=== PATIENT | female | born 1995 | race American Indian/Alaskan Native ===

== ENCOUNTER 2018-08-30 15:55 | Emergency (ER) | payer OTHER ==
--- NOTE | 2018-08-30 16:04 | Emergency Department Report ---
ED ENT HPI - General Chief complaint: Dental/Oral Stated complaint: RT SIDE TOOTH PAIN Time Seen by Provider: 08/30/18 16:04 Source: patient Mode of arrival: Ambulatory Limitations: No Limitations - History of Present Illness Initial comments: PT IS 23 YO WITH LOWER RIGHT MOLAR DENTAL PAIN. SHE IS AND HER OB SENT HER HERE. SHE HAS A DMD WORKUP BUT THE PAIN IS UNBEARABLE. AMBULATORY AFEBRILE TAKING PO complaint: tooth pain Consistency: constant Improves with: none Worsens with: none Context- Dental: history of dental caries - Related Data Previous Rx's Medication Instructions Recorded Last Taken Type Amoxicillin 500 mg PO BID #20 capsule 08/30/18 Unknown Rx HYDROcodone/APAP 5-325 [[place] 1 each PO Q8H PRN #5 tablet 08/30/18 Unknown Rx 5-325 mg TAB] Allergies Allergy/AdvReac Type Severity Reaction Status Date / Time No Known Allergies Allergy Verified 08/30/18 15:56 ED Dental HPI - General Chief complaint: Dental/Oral Stated complaint: RT SIDE TOOTH PAIN Time Seen by Provider: 08/30/18 16:04 Source: patient Mode of arrival: Ambulatory Limitations: No Limitations - Related Data Previous Rx's Medication Instructions Recorded Last Taken Type Amoxicillin 500 mg PO BID #20 capsule 08/30/18 Unknown Rx HYDROcodone/APAP 5-325 [[place] 1 each PO Q8H PRN #5 tablet 08/30/18 Unknown Rx 5-325 mg TAB] Allergies Allergy/AdvReac Type Severity Reaction Status Date / Time No Known Allergies Allergy Verified 08/30/18 15:56 ED Review of Systems ROS: Stated complaint: RT SIDE TOOTH PAIN Other details as noted in HPI Comment: All other systems reviewed and negative Constitutional: denies: chills Eyes: denies: as per HPI ENT: as per HPI, dental pain Respiratory: denies: cough Endocrine: denies: flushing Gastrointestinal: denies: abdominal pain, nausea, vomiting, diarrhea, constipation, hematemesis, melena Genitourinary: as per HPI. denies: urgency, dysuria, frequency, hematuria, discharge, abnormal menses Musculoskeletal: denies: back pain Neurological: denies: headache Psychiatric: denies: anxiety ED Past Medical Hx - Medications Home Medications: Home Medications Medication Instructions Recorded Confirmed Last Taken Type Amoxicillin 500 mg PO BID #20 capsule 08/30/18 Unknown Rx HYDROcodone/APAP 5-325 [[place] 1 each PO Q8H PRN #5 tablet 08/30/18 Unknown Rx 5-325 mg TAB] ED Physical Exam - General Limitations: No Limitations General appearance: alert - Head Head exam: Present: atraumatic - Eye Eye exam: Present: normal appearance Pupils: Present: normal accommodation - ENT ENT exam: Present: normal exam - Expanded ENT Exam Expanded Mouth exam: Absent: drooling, trismus, muffled voice, tongue normal, tongue elevation Teeth exam: Present: dental caries. Absent: normal inspection 1 - Other (CARIES) Throat exam: Positive: normal inspection. Negative: tonsillar erythema, tonsillomegaly, tonsillar exudate, R peritonsillar mass, L peritonsillar mass - Neck Neck exam: Present: normal inspection, full ROM. Absent: tenderness - Respiratory Respiratory exam: Present: normal lung sounds bilaterally - Cardiovascular Cardiovascular Exam: Present: regular rate (100 ON EXAM) - GI/Abdominal GI/Abdominal exam: Present: soft, other (GRAVID) - Rectal Rectal exam: Present: deferred - Extremities Exam Extremities exam: Present: normal inspection - Back Exam Back exam: Present: normal inspection - Neurological Exam Neurological exam: Present: alert, oriented X3, CN II-XII intact, normal gait - Psychiatric Psychiatric exam: Present: normal affect, normal mood - Skin Skin exam: Present: warm, dry, intact ED Course Vital Signs 08/30/18 16:05 Temperature 98.8 F Pulse Rate 110 H Respiratory 16 Rate Blood Pressure 117/54 [Left] O2 Sat by Pulse 100 Oximetry ED Medical Decision Making - Medical Decision Making DENTAL CARIES CONTROLLING SECRETIONS NO ABSCESS Critical care attestation.: If time is entered above; I have spent that time in minutes in the direct care of this critically ill patient, excluding procedure time. ED Disposition Clinical Impression: Pain, dental Disposition: DC-01 TO HOME OR SELFCARE Is pt being admited?: No Does the pt Need Aspirin: No Condition: Stable Instructions: Dental Caries (ED) Additional Instructions: DAILY VITAMIN PROPER DIET TAKE MED ORDERED TODAY FOLLOW UP DMD BETSEY Prescriptions: Amoxicillin 500 mg PO BID #20 capsule HYDROcodone/APAP 5-325 [[place] 5-325 mg TAB] 1 each PO Q8H PRN #5 tablet PRN Reason: Pain Referrals: [facility] [Outside] - 3-5 Days Time of Disposition: 16:06
== END 2018-08-30 16:45 | disposition home or self-care (01) ==
LOC: ED 15:55
CPT/HCPCS: 99282

== ENCOUNTER 2018-09-12 17:24 | Emergency (ER) | payer OTHER ==
--- NOTE | 2018-09-12 21:19 | Emergency Department Report ---
ED ENT HPI - General Chief complaint: Dental/Oral Stated complaint: TOOTHACHE Time Seen by Provider: 09/12/18 20:57 Source: patient Mode of arrival: Ambulatory Limitations: No Limitations - History of Present Illness MD complaint: tooth pain -: Gradual, Sudden, month(s) Severity: mild Quality: other (throbbing pain) Consistency: constant Improves with: none Worsens with: none Context- Dental: history of dental caries, poor dental care Associated Symptoms: toothache - Related Data Previous Rx's Medication Instructions Recorded Last Taken Type Amoxicillin 500 mg PO BID #20 capsule 08/30/18 Unknown Rx HYDROcodone/APAP 5-325 [[place] 1 each PO Q8H PRN #5 tablet 08/30/18 Unknown Rx 5-325 mg TAB] Acetaminophen/Codeine [Tylenol 1 tab PO Q6H PRN #7 tab 09/12/18 Unknown Rx /Codeine # 3 tab] Chlorhexidine Mouthwash [Peridex] 15 ml MM BID #1 bottle 09/12/18 Unknown Rx Lidocaine Viscous 2% 5 ml MM Q4-6H #120 udc 09/12/18 Unknown Rx Allergies Allergy/AdvReac Type Severity Reaction Status Date / Time No Known Allergies Allergy Verified 09/12/18 19:15 ED Dental HPI - General Chief complaint: Dental/Oral Stated complaint: TOOTHACHE Time Seen by Provider: 09/12/18 20:57 Source: patient Mode of arrival: Ambulatory Limitations: No Limitations - Related Data Previous Rx's Medication Instructions Recorded Last Taken Type Amoxicillin 500 mg PO BID #20 capsule 08/30/18 Unknown Rx HYDROcodone/APAP 5-325 [[place] 1 each PO Q8H PRN #5 tablet 08/30/18 Unknown Rx 5-325 mg TAB] Acetaminophen/Codeine [Tylenol 1 tab PO Q6H PRN #7 tab 09/12/18 Unknown Rx /Codeine # 3 tab] Chlorhexidine Mouthwash [Peridex] 15 ml MM BID #1 bottle 09/12/18 Unknown Rx Lidocaine Viscous 2% 5 ml MM Q4-6H #120 udc 09/12/18 Unknown Rx Allergies Allergy/AdvReac Type Severity Reaction Status Date / Time No Known Allergies Allergy Verified 09/12/18 19:15 ED Review of Systems ROS: Stated complaint: TOOTHACHE Other details as noted in HPI Constitutional: denies: chills, fever Eyes: denies: eye pain, eye discharge, vision change ENT: denies: ear pain, throat pain Respiratory: denies: cough, shortness of breath, wheezing Cardiovascular: denies: chest pain, palpitations Endocrine: no symptoms reported Gastrointestinal: denies: abdominal pain, nausea, diarrhea Genitourinary: denies: urgency, dysuria, discharge Musculoskeletal: denies: back pain, joint swelling, arthralgia Skin: denies: rash, lesions Neurological: denies: headache, weakness, paresthesias Psychiatric: denies: anxiety, depression Hematological/Lymphatic: denies: easy bleeding, easy bruising ED Past Medical Hx - Social History Smoking Status: Never Smoker Substance Use Type: None - Medications Home Medications: Home Medications Medication Instructions Recorded Confirmed Last Taken Type Amoxicillin 500 mg PO BID #20 capsule 08/30/18 Unknown Rx HYDROcodone/APAP 5-325 [[place] 1 each PO Q8H PRN #5 tablet 08/30/18 Unknown Rx 5-325 mg TAB] Acetaminophen/Codeine [Tylenol 1 tab PO Q6H PRN #7 tab 09/12/18 Unknown Rx /Codeine # 3 tab] Chlorhexidine Mouthwash [Peridex] 15 ml MM BID #1 bottle 09/12/18 Unknown Rx Lidocaine Viscous 2% 5 ml MM Q4-6H #120 udc 09/12/18 Unknown Rx ED Physical Exam - General Limitations: No Limitations General appearance: alert, in no apparent distress - Head Head exam: Present: atraumatic, normocephalic - Eye Eye exam: Present: normal appearance, PERRL, EOMI Pupils: Present: normal accommodation - ENT ENT exam: Present: normal exam, normal orophraynx, mucous membranes moist, other (dental caries and erythema to gingiva region) - Neck Neck exam: Present: normal inspection - Respiratory Respiratory exam: Present: normal lung sounds bilaterally. Absent: respiratory distress - Cardiovascular Cardiovascular Exam: Present: regular rate, normal rhythm. Absent: systolic murmur, diastolic murmur, rubs, gallop - GI/Abdominal GI/Abdominal exam: Present: soft, normal bowel sounds - Extremities Exam Extremities exam: Present: normal inspection - Back Exam Back exam: Present: normal inspection - Neurological Exam Neurological exam: Present: alert, oriented X3 - Psychiatric Psychiatric exam: Present: normal affect, normal mood - Skin Skin exam: Present: warm, dry, intact, normal color. Absent: rash ED Course Vital Signs 09/12/18 21:36 Temperature 98.3 F Pulse Rate 94 H Respiratory 16 Rate Blood Pressure 103/51 [Left] O2 Sat by Pulse 98 Oximetry Critical care attestation.: If time is entered above; I have spent that time in minutes in the direct care of this critically ill patient, excluding procedure time. ED Disposition Clinical Impression: Pain, dental, Dental caries Disposition: TO HOME OR SELFCARE Is pt being admited?: No Does the pt Need Aspirin: No Condition: Stable Instructions: Dental Caries (ED), Toothache (ED) Prescriptions: Lidocaine Viscous 2% 5 ml MM Q4-6H #120 udc Chlorhexidine Mouthwash [Peridex] 15 ml MM BID #1 bottle Acetaminophen/Codeine [Tylenol /Codeine # 3 tab] 1 tab PO Q6H PRN #7 tab PRN Reason: Pain, Moderate (4-6) Referrals: PRIMARY CARE, [Primary Care Provider] - 3-5 Days
--- NOTE | 2018-09-12 21:32 | Emergency Department Report ---
ED ENT HPI - General Chief complaint: Dental/Oral Stated complaint: TOOTHACHE Time Seen by Provider: 09/12/18 20:57 Source: patient Mode of arrival: Ambulatory Limitations: No Limitations - History of Present Illness MD complaint: tooth pain -: week(s) (recurrent dental pain for the last few weeks has appointment with the dentist next week here for pain flareup in seeking analgesia medications.) Location: tooth # Severity: moderate Quality: dull Consistency: constant Improves with: none Worsens with: eating Associated Symptoms: toothache. denies: pain with swallowing, sore throat, tinnitus, discharge from ear, rhinorrhea - Related Data Previous Rx's Medication Instructions Recorded Last Taken Type Amoxicillin 500 mg PO BID #20 capsule 08/30/18 Unknown Rx HYDROcodone/APAP 5-325 [[place] 1 each PO Q8H PRN #5 tablet 08/30/18 Unknown Rx 5-325 mg TAB] Acetaminophen/Codeine [Tylenol 1 tab PO Q6H PRN #7 tab 09/12/18 Unknown Rx /Codeine # 3 tab] Chlorhexidine Mouthwash [Peridex] 15 ml MM BID #1 bottle 09/12/18 Unknown Rx Lidocaine Viscous 2% 5 ml MM Q4-6H #120 udc 09/12/18 Unknown Rx Allergies Allergy/AdvReac Type Severity Reaction Status Date / Time No Known Allergies Allergy Verified 09/12/18 19:15 ED Dental HPI - General Chief complaint: Dental/Oral Stated complaint: TOOTHACHE Time Seen by Provider: 09/12/18 20:57 Source: patient Mode of arrival: Ambulatory Limitations: No Limitations - History of Present Illness MD complaint: tooth pain - Related Data Previous Rx's Medication Instructions Recorded Last Taken Type Amoxicillin 500 mg PO BID #20 capsule 08/30/18 Unknown Rx HYDROcodone/APAP 5-325 [[place] 1 each PO Q8H PRN #5 tablet 08/30/18 Unknown Rx 5-325 mg TAB] Acetaminophen/Codeine [Tylenol 1 tab PO Q6H PRN #7 tab 09/12/18 Unknown Rx /Codeine # 3 tab] Chlorhexidine Mouthwash [Peridex] 15 ml MM BID #1 bottle 09/12/18 Unknown Rx Lidocaine Viscous 2% 5 ml MM Q4-6H #120 udc 09/12/18 Unknown Rx Allergies Allergy/AdvReac Type Severity Reaction Status Date / Time No Known Allergies Allergy Verified 09/12/18 19:15 ED Review of Systems ROS: Stated complaint: TOOTHACHE Other details as noted in HPI Constitutional: denies: chills, fever Eyes: denies: eye pain, eye discharge, vision change ENT: dental pain. denies: ear pain, throat pain Respiratory: denies: cough, shortness of breath, wheezing Cardiovascular: denies: chest pain, palpitations Endocrine: no symptoms reported Gastrointestinal: denies: abdominal pain, nausea, diarrhea Genitourinary: denies: urgency, dysuria, discharge Musculoskeletal: denies: back pain, joint swelling, arthralgia Skin: denies: rash, lesions Neurological: denies: headache, weakness, paresthesias Psychiatric: denies: anxiety, depression Hematological/Lymphatic: denies: easy bleeding, easy bruising ED Past Medical Hx - Social History Smoking Status: Never Smoker Substance Use Type: None - Medications Home Medications: Home Medications Medication Instructions Recorded Confirmed Last Taken Type Amoxicillin 500 mg PO BID #20 capsule 08/30/18 Unknown Rx HYDROcodone/APAP 5-325 [[place] 1 each PO Q8H PRN #5 tablet 08/30/18 Unknown Rx 5-325 mg TAB] Acetaminophen/Codeine [Tylenol 1 tab PO Q6H PRN #7 tab 09/12/18 Unknown Rx /Codeine # 3 tab] Chlorhexidine Mouthwash [Peridex] 15 ml MM BID #1 bottle 09/12/18 Unknown Rx Lidocaine Viscous 2% 5 ml MM Q4-6H #120 udc 09/12/18 Unknown Rx ED Physical Exam - General Limitations: No Limitations General appearance: alert, in no apparent distress - Head Head exam: Present: atraumatic, normocephalic - Eye Eye exam: Present: normal appearance, PERRL, EOMI Pupils: Present: normal accommodation - ENT ENT exam: Present: mucous membranes moist, other (diffuse dental caries with some impaction to the molar tenderness with palpation of tooth #32. No adjacent swelling or erythema. No discharge or abscess formation. Normal Stensen's duct. Tongue and uvula are normal size. Airway is patent. No erythema or exudate. Normal TMJ) - Neck Neck exam: Present: normal inspection - Respiratory Respiratory exam: Present: normal lung sounds bilaterally. Absent: respiratory distress - Cardiovascular Cardiovascular Exam: Present: regular rate, normal rhythm. Absent: systolic murmur, diastolic murmur, rubs, gallop - GI/Abdominal GI/Abdominal exam: Present: soft, normal bowel sounds - Extremities Exam Extremities exam: Present: normal inspection - Back Exam Back exam: Present: normal inspection - Neurological Exam Neurological exam: Present: alert, oriented X3 - Psychiatric Psychiatric exam: Present: normal affect, normal mood - Skin Skin exam: Present: warm, dry, intact, normal color. Absent: rash ED Medical Decision Making - Medical Decision Making Constipation. Follow-up with the dentist for definitive management and her [facility] as well. She was prescribed amoxicillin on the last last visit in conjunction with Tylenol. She states that helps her pain and she wanted amoxicillin blood stick with Tylenol again on this visit. However, there is no signs of infection and I do not find it necessary to take any further antibodies for believed pain control. She was prescribed [place] 5 last visit. However, she did not get the medication filled for her condition of her OB since the Tylenol and oxygen was control of her pain. There was no need for him to increase the intensity. She no longer has that prescription upper seeks some analgesia control today. Critical care attestation.: If time is entered above; I have spent that time in minutes in the direct care of this critically ill patient, excluding procedure time. ED Disposition Clinical Impression: Pain, dental Disposition: DC-01 TO HOME OR SELFCARE Is pt being admited?: No Does the pt Need Aspirin: No Condition: Stable Instructions: Dental Caries (ED), Toothache (ED) Prescriptions: Lidocaine Viscous 2% 5 ml MM Q4-6H #120 udc Chlorhexidine Mouthwash [Peridex] 15 ml MM BID #1 bottle Acetaminophen/Codeine [Tylenol /Codeine # 3 tab] 1 tab PO Q6H PRN #7 tab PRN Reason: Pain, Moderate (4-6) Referrals: PRIMARY CARE, [Primary Care Provider] - 3-5 Days
== END 2018-09-12 21:39 | disposition home or self-care (01) ==
LOC: ED 17:24
DX: K08.89 Other specified disorders of teeth and supporting structures (principal)
CPT/HCPCS: 99282

== ENCOUNTER 2018-11-24 02:03 | Inpatient (IN) | payer OTHER ==
[2018-11-24] MEDS ORDERED: AMPICILLIN/NS 2 GM/100 ML 2 GM/100 ML BAG IV ONE (02:12)
[2018-11-24] MEDS ORDERED: XYLOCAINE 2% INFILTRATI ONE ×2 (02:12→02:13)
[2018-11-24] MEDS ORDERED: MINERAL OIL PO PRN (02:12)
[2018-11-24] MEDS ORDERED: SUBLIMAZE IV PRN (02:12)
[2018-11-24] MEDS ORDERED: BRETHINE SUB-Q PRN (02:12)
[2018-11-24] MEDS ORDERED: BRETHINE IVP PRN (02:12)
[2018-11-24] MEDS ORDERED: LACTATED RINGERS 1,000 ML ONE (02:13)
[2018-11-24] MEDS ORDERED: PITOCin/NS 20 UNIT/1000ML DRIP 20,000 MILLIUNITS/1,000 ML BAG IV ONE (02:13)
[2018-11-24] MEDS ORDERED: PITOCin/NS 20 UNIT/1000ML DRIP 20 UNITS/1,000 ML BAG IV SCH (03:00)
[2018-11-24] MEDS ORDERED: LACTATED RINGERS 1,000 ML IV SCH (03:00)
--- NOTE | 2018-11-24 03:07 | History and Physical Report ---
History of Present Illness Date of examination: 11/24/18 Date of admission: 11/24/18 02:06 Chief complaint: contractions History of present illness: 23y/o @ 41+2 weeks presents in active labor with advanced cervical dilation of 7cm. The patient denies leakage of fluid. Past History Past Medical History: no pertinent history Past Surgical History: other (renal stones) Social history: - Obstetrical History Expected Date of Delivery: 11/15/18 Actual Gestation: 41 Week(s) 2 Day(s) : 5 Para: 3 Hx # Term Pregnancies: 3 Number of Pregnancies: 0 Spontaneous Abortions: 1 Induced : 0 Number of Living Children: 3 Medications and Allergies Allergies Allergy/AdvReac Type Severity Reaction Status Date / Time No Known Allergies Allergy Verified 09/12/18 19:15 Home Medications Medication Instructions Recorded Confirmed Last Taken Type Amoxicillin 500 mg PO BID #20 capsule 08/30/18 Unknown Rx HYDROcodone/APAP 5-325 [[place] 1 each PO Q8H PRN #5 tablet 08/30/18 Unknown Rx 5-325 mg TAB] Acetaminophen/Codeine [Tylenol 1 tab PO Q6H PRN #7 tab 09/12/18 Unknown Rx /Codeine # 3 tab] Chlorhexidine Mouthwash [Peridex] 15 ml MM BID #1 bottle 09/12/18 Unknown Rx Lidocaine Viscous 2% 5 ml MM Q4-6H #120 udc 09/12/18 Unknown Rx Active Meds: Active Medications Ephedrine Sulfate (Ephedrine Sulfate) 10 mg IV Q2M PRN PRN Reason: Hypotension Fentanyl (Sublimaze) 100 mcg IV Q2H PRN PRN Reason: Labor Pain Oxytocin/Sodium Chloride (Pitocin/Ns 20 Unit/1000ml Drip) 20 units in 1,000 mls @ 125 mls/hr IV DIRECT MISSY Lactated Ringer's (Lactated Ringers) 1,000 mls @ 125 mls/hr IV DIRECT MISSY Ampicillin Sodium (Polycillin/Ns 2 Gm/100 Ml) 2 gm in 100 mls @ 100 mls/hr IV ONCE ONE; Protocol Stop: 11/24/18 03:11 Ampicillin Sodium (Ampicillin/Ns 1 Gm/50 Ml) 1 gm in 50 mls @ 100 mls/hr IV Q4HR MISSY; Protocol Mineral Oil (Mineral Oil) 30 ml PO QHS PRN PRN Reason: Constipation Terbutaline Sulfate (Brethine) 0.25 mg SUB-Q ONCE PRN PRN Reason: Hyperstimulation/Hypertonicity Terbutaline Sulfate (Brethine) 0.25 mg IVP ONCE PRN PRN Reason: Hyperstimulation/Hypertonicity Review of Systems All systems: negative Genitourinary: contractions, no leakage of fluid - Vital Signs Vital signs: Vital Signs Pulse BP 105 H 118/71 11/24/18 02:36 11/24/18 02:36 Temp Pulse Resp BP Pulse Ox 105 H 118/71 11/24/18 02:36 11/24/18 02:36 - Physical Exam Breasts: Positive: deferred Cardiovascular: Regular rate Lungs: Positive: Clear to auscultation Abdomen: Positive: normal appearance Results All other labs normal. Assessment and Plan - Patient Problems (1) Active labor at term Current Visit: Yes Status: Acute Plan to address problem: admit to L&D (2) Post term at 41 weeks gestation Current Visit: Yes Status: Acute
[2018-11-24 03:20] LABS: Hepatitis C Virus Antibody Non-Reactive (NonReactive)
[2018-11-24 03:47] LABS: Hematocrit 28.8 % (30.3-42.9); Hemoglobin 9.3 gm/dl (10.1-14.3); Mean Corpuscular HGB Conc 32 % (30-34); Mean Corpuscular Volume 74 fl (79-97); Platelet Count 290 K/mm3 (140-440)
[2018-11-24] MEDS ORDERED: TYLENOL PO PRN (04:21)
[2018-11-24] MEDS ORDERED: DULCOLAX PR PRN (04:21)
[2018-11-24] MEDS ORDERED: PHENERGAN PR PRN (04:21)
[2018-11-24] MEDS ORDERED: BENADRYL PO PRN (04:21)
[2018-11-24] MEDS ORDERED: TUCKS PAD TP PRN (04:21)
[2018-11-24] MEDS ORDERED: ZOFRAN IV PRN (04:21)
[2018-11-24] MEDS ORDERED: LANSINOH TP PRN (04:21)
[2018-11-24] MEDS ORDERED: MILK OF MAGNESIA PO PRN (04:21)
[2018-11-24] MEDS ORDERED: PHENERGAN PO PRN (04:21)
--- NOTE | 2018-11-24 04:21 | Procedure Note ---
OB Delivery Note - Delivery Date of Delivery: 11/24/18 Surgeon: ERLIN BRITTON Estimated blood loss: 100cc - Vaginal Delivery presentation: vertex Delivery position: OA Intrapartum events: none Delivery induction: AROM Delivery monitor: external FHT, external uterine Route of delivery: Delivery placenta: spontaneous Delivery cord: 3 umbilical vessels Episiotomy: none Delivery laceration: none Anesthesia: none Delivery comments: Patient progressed to C/C/+1 and pushed to deliver a liveborn male with apgars of 7/9 weight 9lbs 2oz. After delivery of the head, the shoulders delivered without difficulty. Cord clamping was delayed. The infant was placed on the patient's chest for skin to skin. Once the cord was cut, the placenta delivered spontaneously intact with a 3VC. No lacerations were noted. EBL 100ml - Infant A at 1 minute: 7 at 5 minutes: 9 Infant Gender: Male (weight 9lbs 2oz)
[2018-11-24] MEDS ORDERED: SODIUM CHLORIDE FLUSH SYRINGE 10 ML IV NR (05:00)
[2018-11-24] MEDS ORDERED: AMPICILLIN/NS 1 GM/50 ML 1 GM/50 ML BAG IV SCH (06:13)
[2018-11-24] MEDS: NORCO 5/325 PO PRN ×2 (06:52→18:24)
[2018-11-24] MEDS: IBUPROFEN PO SCH ×4 (06:53→23:50)
[2018-11-24 17:17] LABS: Hematocrit 28.9 % (30.3-42.9); Hemoglobin 9.1 gm/dl (10.1-14.3)
[2018-11-25] MEDS: IBUPROFEN PO SCH (05:57)
--- NOTE | 2018-11-25 08:38 | Progress Note ---
Assessment and Plan - Patient Problems (1) Active labor at term Current Visit: Yes Status: Acute Plan to address problem: patient doing well discharge home (2) Post term at 41 weeks gestation Current Visit: Yes Status: Acute Subjective - Subjective Date of service: 11/25/18 Interval history: Patient without complaints. Pain well controlled Patient reports: appetite normal, voiding normally, pain well controlled : doing well Objective - Vital Signs Latest vital signs: Vital Signs Temp Pulse Resp BP BP Pulse Ox 11/25/18 05:57 20 11/25/18 01:10 97.9 F 87 20 99/56 98 11/24/18 23:50 20 11/24/18 20:37 98.0 F 81 20 99/63 98 11/24/18 16:00 98.6 F 96 H 18 130/59 11/24/18 12:55 97.5 F L 83 18 107/53 Intake and Output 11/24/18 11/25/18 11/25/18 22:59 06:59 14:59 Intake Total 680 240 Balance 680 240 Intake: Oral 680 240 Other: Total, Intake Amount 320 240 # Voids Void 1 1 Weight 68.946 kg - Exam Abdomen: Present: normal appearance, soft - Labs Labs: Abnormal lab results 11/24/18 Range/Units 16:51 Hgb 9.1 L (10.1-14.3) gm/dl Hct 28.9 L (30.3-42.9) %
--- NOTE | 2018-11-25 08:47 | Discharge Summary ---
Providers - Providers Date of Admission: 11/24/18 02:06 Date of discharge: 11/25/18 Attending physician: ERLIN BRITTON Primary care physician: ERLIN BRITTON Hospitalization Reason for admission: active labor Delivery: Discharge diagnosis: IUP at term delivered [place] baby: male Hospital course: Patient admitted in labor. Had a . uncomplicated Condition at discharge: Good Disposition: DC-01 TO HOME OR SELFCARE - Discharge Diagnoses (1) Active labor at term Status: Acute (2) Post term at 41 weeks gestation Status: Acute Plan - Discharge Medications Prescriptions: Ibuprofen [Motrin] 800 mg PO Q8HR PRN #60 tablet PRN Reason: Pain, Mild (1-3) HYDROcodone/APAP 5-325 [[place] 5/325] 1 each PO Q6HR PRN #20 tablet PRN Reason: Pain - Provider Discharge Summary Activity: no sex for 6 weeks, no heavy lifting 4 weeks, no strenuous exercise Diet: routine Instructions: routine Additional instructions: [] Smoking cessation referral if applicable(refer to patient education folder for contact #) [] Refer to [facility] Booklet Call your doctor immediately for: * Fever > 100.5 * Heavy vaginal bleeding ( >1 pad per hour) * Severe persistent headache * Shortness of breath * Reddened, hot, painful area to leg or breast * schedule visit in 4 weeks - Follow up plan
[2018-11-25 14:09] VITALS: BP 101/56
== END 2018-11-25 14:15 | disposition home or self-care (01) | DRG 775 ==
LOC: TRG 02:03 → LD 02:06 → OB 08:02
PROVIDERS: ADMIT Obstetrics & Gynecology; ATTEND Obstetrics & Gynecology
PROC: 10E0XZZ Delivery of Products of Conception, External Approach (ICD-10-PCS; principal; 2018-11-24)
PROC: 10907ZC Drainage of Amniotic Fluid, Therapeutic from Products of Conception, Via Natural or Artificial Opening (ICD-10-PCS; 2018-11-24)
DX: O48.0 Post-term pregnancy (principal); Z3A.41 41 weeks gestation of pregnancy; Z37.0 Single live birth
CPT/HCPCS: 36415; 85014; 85018; 85027; 86592; 86706; 86762; 86803; 86850; 86900; 86901; 87806; G0378; J2590; J7120

== ENCOUNTER 2020-08-18 02:22 | Outpatient (CLI) | payer OTHER ==
[2020-08-18 03:12] VITALS: BP 114/64
== END 2020-08-18 04:11 | disposition home or self-care (01) ==
LOC: TRG 02:22 → APU 02:33 → TRG 04:11
PROVIDERS: ATTEND Obstetrics & Gynecology
DX: O47.1 False labor at or after 37 completed weeks of gestation (principal); Z3A.39 39 weeks gestation of pregnancy
CPT/HCPCS: 59025